=== PATIENT | female | born 1985 | race Caucasian/White ===

== ENCOUNTER 2017-05-10 17:31 | Emergency (ER) | payer BC, OTHER ==
[~2017-05-10] VITALS: Ht 167.6 cm; Wt 56.5 kg
[~2017-05-10 17:31] MED LIST: HYDR-2086 PO; MEDR150D9 IM; ZOF8 PO
[2017-05-10 17:43] VITALS: Ht 167.6 cm; Wt 56.5 kg
[2017-05-10] MEDS ORDERED: KETOROLAC 60 MG INJ IM STA (20:06)
[2017-05-10] MEDS ORDERED: HYDROCODONE/APAP (10/325) TAB PO ONE (20:30)
--- NOTE | 2017-05-10 20:39 | ERD ---
ER Documentation Chief Complaint Date/Time DATE: 05/10/17 TIME: 20:37 Chief Complaint RT SHOULDER AND ARM PAIN S/P CHAIR FROM STACK FALLING ON HER HPI 31-year-old female presents here in emergency department for complaints of right shoulder pain, right neck pain that radiates to the right arm after a stack on it yesterday. Patient described the pain as throbbing pain, depression scale, is worse upon movement of the shoulder, accompanied with numbness and tingling on the right arm. Patient did not take any medications to help with symptoms. Patient denies any deformity. Patient denies any fever or chills. Patient denies any limitation movement of the joint. ROS All systems reviewed and are negative except as per history of present illness. Medications Home Meds Reported Medications Hydrocodone Bit-Acetaminophen* (Vicodin*) 1 Each Tablet, 1 EACH PO Q4NARC Y 01/21/13 Medroxyprogesterone Acetate* (Depo-Provera*) 150 Mg/Ml Disp.syrin, 150 MG IM EVERY THREE MONTHS 01/21/13 Ondansetron Hcl* (Zofran*) 8 Mg Tab, 8 MG PO TID Y 01/21/13 Allergies Allergies: Coded Allergies: No Known Allergy (Unverified , 05/10/17) PMhx/Soc History of Surgery: Yes (MULT ABDOMINAL LAPAROSCOPIC/LAPAROTOMIES) Anesthesia Reaction: Yes (ACCDG TO HER,PER HER LAST SURGERY SHE SWELT A LITTLE.HER FACE AND BODY.) Hx Neurological Disorder: No Hx Respiratory Disorders: No Hx Cardiac Disorders: No Hx Psychiatric Problems: No Hx Miscellaneous Medical Probl: Yes (ENDOMETRIOSIS) Hx Alcohol Use: No Hx Substance Use: No Hx Tobacco Use: No FmHx Family History: No coronary disease, No diabetes, No other Physical Exam Vitals Vital Signs Date Time Temp Pulse Resp B/P Pulse Ox O2 Delivery O2 Flow Rate FiO2 05/10/17 17:43 98.9 92 16 117/83 97 Physical Exam GENERAL: The patient is well developed and appropriate for usual state of health, in no apparent distress. CHEST: Clear to auscultation bilaterally. There are no rales, wheezes or rhonchi. HEART: Regular rate and rhythm. No murmurs, clicks, rubs or gallops. No S3 or S4. ABDOMEN: Soft, nontender and nondistended. Good bowel sounds. No rebound or guarding. No gross peritonitis. No gross organomegaly or masses. No Troncoso sign or McBurney point tenderness. BACK: No midline or flank tenderness.tenderness on palpation on the right paraspinal aspect of the cervical spine.Muscle spasms noted. EXTREMITIES: able to do full range of motion of the right shoulder without any restriction. No swelling noted, no deformity noted. Equal pulses bilaterally. There is no peripheral clubbing, cyanosis or edema. No focal swelling or erythema. Full range of motion. Grossly neurovascularly intact. NEURO: Alert and oriented. Cranial nerves 2-12 intact. Motor strength in all 4 extremities with 5/5 strength. Sensation grossly intact. Normal speech and gait. SKIN: There is no apparent rash or petechia. The skin is warm and dry. HEMATOLOGIC AND LYMPHATIC: There is no evidence of excessive bruising or lymphedema. No gross cervical, axillary, or inguinal lymphadenopathy. Results 24 hrs Current Medications Medications (Trade) Dose Ordered Sig/Cesario Route PRN Reason Start Time Stop Time Status Last Admin Dose Admin Ketorolac Tromethamine (Toradol) 60 mg ONCE STAT IM 05/10/17 20:06 05/10/17 20:09 DC 05/10/17 20:26 Acetaminophen/ Hydrocodone Bitart (Lavina (10/325)) 1 tab ONCE ONCE PO 05/10/17 20:30 05/10/17 20:31 DC 05/10/17 20:26 Patient was given medication for pain here in emergency department, after treatment, patient verbalized feeling much better. Patient's pain is improved.. PROCEDURE: XR Cervical Spine. CLINICAL INDICATION: Cervical spine pain. TECHNIQUE: AP, lateral and odontoid views of the cervical spine were performed. The images were reviewed on a PACS workstation. COMPARISON: None available FINDINGS: There is diffuse straightening of the cervical spine without reversal of normal cervical lordosis. The vertebral body height and osseous mineralization are normal. There is no evidence of fracture or dislocation. There is no significant facet arthropathy. The uncovertebral joints are unremarkable. The intervertebral disc spaces are well maintained. There are no abnormal calcifications. The prevertebral soft tissues are normal. No radiopaque foreign bodies are identified. IMPRESSION: 1. Diffuse straightening of the cervical spine which may be related to paraspinal muscle spasm versus positioning. 2. Otherwise, normal radiographs of the cervical spine. No significant degenerative disc disease or evidence of fracture. RPTAT: HGAS .Abelardo Bueno MD, MD Date Time Electronically viewed and signed by .Abelardo Bueno MD, MD on 05/10/2017 22: 15 .S/ CC: VIVI MOSCOSO ADVANCED REGISTERED NURSE PROCEDURE: XR shoulder. CLINICAL INDICATION: Right shoulder pain status post injury. TECHNIQUE: AP internal and external rotation and scapular Y views of the right shoulder were performed. COMPARISON: None available FINDINGS: The clavicle, scapula and proximal humerus are normal in appearance. The acromioclavicular joint is normal in appearance. There is no significant lateral downsloping of the acromion. The glenohumeral joint space is maintained. There is no evidence of fracture or dislocation. The right hemithorax is normal in appearance. The soft tissues are unremarkable. IMPRESSION: 1. Normal radiographs of the right shoulder. No evidence of fracture or dislocation. RPTAT: HGAS .Abelardo Bueno MD, MD Date Time Electronically viewed and signed by .Abelardo Bueno MD, MD on 05/10/2017 22: 16 .S/ CC: VIVI MOSCOSO ADVANCED REGISTERED NURSE Procedures/MDM Medical Decision Making: Patient's pain is most likely consistent with a shoulder contusion an a neck muscle strain. There is no suspicion for neurovascular compromise. Patient has intact sensation and circulation of the affected extremity. There is low suspicion for septic arthritis. Patient does not have any fever. Radiology exams of the affected area does not show any fracture or dislocation. Disposition: Home. Patient is given prescription for ibuprofen for pain gabapentin. Patient was advised to elevate the affected area and apply ice on affected area. Patient was advised that if symptoms are worse, numbness, tingling, high fever, unable to move joint, worsening symptoms, to return to emergency department immediately. Otherwise, patient is advised to follow up with the primary care doctor in 5-7 days for reevaluation of symptoms. Departure Diagnosis: Primary Impression: Shoulder pain Chronicity: acute Laterality: right Qualified Code: M25.511 - Acute pain of right shoulder Additional Impression: Neck pain Condition: Stable Patient Instructions: Neck Sprain/Strain, Shoulder Contusion Additional Instructions: Patient is given prescription for ibuprofen for pain gabapentin. Patient was advised to elevate the affected area and apply ice on affected area. Patient was advised that if symptoms are worse, numbness, tingling, high fever, unable to move joint, worsening symptoms, to return to emergency department immediately. Otherwise, patient is advised to follow up with the primary care doctor in 5-7 days for reevaluation of symptoms. VIVI MOSCOSO NP May 10, 2017 20:38
--- NOTE | 2017-05-10 22:16 | RADRPT ---
PROCEDURE: XR shoulder. CLINICAL INDICATION: Right shoulder pain status post injury. TECHNIQUE: AP internal and external rotation and scapular Y views of the right shoulder were perfo rmed. COMPARISON: None available FINDINGS: The clavicle, scapula and proximal humerus are normal in appearance. The acromioclavicular joint is normal in appearance. There is no significant lateral downsloping of the acromion. The glenohumer al joint space is maintained. There is no evidence of fracture or dislocation. The right hemithora x is normal in appearance. The soft tissues are unremarkable. IMPRESSION: 1. Normal radiographs of the right shoulder. No evidence of fracture or dislocation. RPTAT: HGAS .Abelardo Bueno MD, MD Date Time Electronically viewed and signed by .Abelardo Bueno MD, on 05/10/2017 22:16 .S/
--- NOTE | 2017-05-10 22:16 | RADRPT ---
PROCEDURE: XR Cervical Spine. CLINICAL INDICATION: Cervical spine pain. TECHNIQUE: AP, lateral and odontoid views of the cervical spine were performed. The images were re viewed on a PACS workstation. COMPARISON: None available FINDINGS: There is diffuse straightening of the cervical spine without reversal of normal cervical lordosis. The vertebral body height and osseous mineralization are normal. There is no evidence of fracture or dislocation. There is no significant facet arthropathy. The uncovertebral joints are unremarkable. The intervertebral disc spaces are well maintained. There are no abnormal calcifications. The prever tebral soft tissues are normal. No radiopaque foreign bodies are identified. IMPRESSION: 1. Diffuse straightening of the cervical spine which may be related to paraspinal muscle spasm vers us positioning. 2. Otherwise, normal radiographs of the cervical spine. No significant degenerative disc disease o r evidence of fracture. RPTAT: HGAS .Abelardo Bueno MD, Date Time Electronically viewed and signed by .Abelardo Bueno MD, on 05/10/2017 22:15 .S/
[2017-05-10] MEDS ORDERED: GABA300C16 PO (22:25)
[2017-05-10] MEDS ORDERED: IBUP-1542 PO (22:25)
[2017-05-10 22:37] VITALS: BP 128/73; PULSE 75; RESP 20; TEMP 98.1
== END 2017-05-10 22:38 | disposition home or self-care (01) ==
LOC: FTE 17:31
DX: M25.511 Pain in right shoulder (principal); M54.2 Cervicalgia
CPT/HCPCS: 72040; 73030; 96372; 99284; J1885

== ENCOUNTER 2017-10-18 02:24 | Inpatient (IN) | END 2017-10-21 17:00 | disposition home or self-care (01) | DRG 760 ==

== ENCOUNTER 2018-04-22 21:34 | Inpatient (IN) | END 2018-04-25 18:20 | disposition home or self-care (01) | DRG 761 ==

== ENCOUNTER 2018-06-05 10:19 | Inpatient (IN) | END 2018-06-07 14:05 | disposition left against medical advice (07) | DRG 392 ==